=== PATIENT | male | born 1980 | race Two or more races ===

== ENCOUNTER 2023-04-15 18:20 | Inpatient (IN) | payer OTHER ==
[2023-04-15 19:05] VITALS: BMI 20.2
[2023-04-15] MEDS ORDERED: IBUPROFEN 600 MG TABLET (FP) PO PRN (20:59)
[2023-04-15] MEDS ORDERED: LOPERAMIDE HCL 2 MG CAPSULE PO PRN (20:59)
[2023-04-15] MEDS ORDERED: DICYCLOMINE HCL 10 MG CAPSULE PO PRN (20:59)
[2023-04-15] MEDS ORDERED: P-EPHED 60MG/TRIPROLIDI 2.5MG TABLET PO PRN (20:59)
[2023-04-15] MEDS ORDERED: POLYETHYLENE GLYCOL (HEALTHYLAX) 3350 17 GM PACKET PO PRN (20:59)
[2023-04-15] MEDS ORDERED: guaiFENesin 600 MG TABLET.ER (FP) PO PRN (20:59)
[2023-04-15] MEDS ORDERED: ONDANSETRON *ODT* 4 MG TABLET SL PRN (20:59)
[2023-04-15] MEDS ORDERED: IBUPROFEN 400 MG TABLET (FP) PO PRN (20:59)
[2023-04-15] MEDS ORDERED: MAG HYDROX/AL HYDROX/SIMETH 30 ML UNIT-DOSE CUP PO PRN (20:59)
[2023-04-15] MEDS ORDERED: MAGNESIUM HYDROX 2400MG/30ML ORAL SUSPENSION 30 ML CUP PO PRN (20:59)
[2023-04-15] MEDS ORDERED: ACETAMINOPHEN 325 MG TABLET (FP) PO PRN (20:59)
[2023-04-15] MEDS ORDERED: BISMUTH SUBSALICYLATE 524 MG/30 ML PO PRN (20:59)
[2023-04-15] MEDS ORDERED: BENZOCAINE/MENTHOL (CHLORASEPTIC ) LOZENGE MM PRN (20:59)
[2023-04-15] MEDS ORDERED: BENZONATATE 200 MG CAPSULE PO PRN (20:59)
[2023-04-15] MEDS ORDERED: NICOTINE POLACRILEX 2 MG GUM BUC PRN (20:59)
[2023-04-15] MEDS: THIAMINE HCL 100 MG TABLET (FP) PO SCH (22:43)
[2023-04-15] MEDS: MELATONIN 5 MG TABLETS PO SCH (22:43)
[2023-04-16] MEDS: PRENATAL VITAMINS W/ FOLIC ACID TABLET (FP) PO SCH (10:43)
[2023-04-16 11:53] LABS: HEMATOCRIT 44.2 % (35.4-49); HEMOGLOBIN 14.8 GM/dL (11.7-16.9); MCH 33.6 pg (25.7-33.7); MCHC 33.5 g/dl (32.0-35.9); MEAN CELL VOLUME 100.3 fl (80-96); MEAN PLT VOLUME 9.2 fl (7.5-11.1); PLATELET COUNT 163 10^3/uL (134-434); RBC 4.41 M/mm3 (4.00-5.60); RDW 12.6 % (11.9-15.9); WHITE BLOOD COUNT 7.1 K/mm3 (4.0-10.0)
[2023-04-16 11:58] LABS: CALCIUM 8.3 mg/dL (8.5-10.1)
[2023-04-16 11:59] LABS: BLOOD UREA NITROGEN 10.6 mg/dL (7-18)
[2023-04-16 12:02] LABS: CREATININE 0.9 mg/dL (0.55-1.3)
[2023-04-16 12:04] LABS: BILIRUBIN,TOTAL 0.9 mg/dL (0.2-1); TOT PROT 5.5 g/dl (6.4-8.2)
[2023-04-16] MEDS: MELATONIN 5 MG TABLETS PO SCH (22:13)
[2023-04-16] MEDS: METHOCARBAMOL 500 MG TABLET PO PRN (22:13)
[2023-04-16] MEDS: THIAMINE HCL 100 MG TABLET (FP) PO SCH (22:13)
[2023-04-16] MEDS: hydrOXYzine PAMOATE 25 MG CAPSULE (FP) PO PRN (22:13)
[2023-04-17] MEDS: PRENATAL VITAMINS W/ FOLIC ACID TABLET (FP) PO SCH (10:16)
[2023-04-17] MEDS: MELATONIN 5 MG TABLETS PO SCH (22:25)
[2023-04-17] MEDS: THIAMINE HCL 100 MG TABLET (FP) PO SCH (22:25)
[2023-04-17] MEDS: hydrOXYzine PAMOATE 25 MG CAPSULE (FP) PO PRN (22:26)
[2023-04-17] MEDS: METHOCARBAMOL 500 MG TABLET PO PRN (22:26)
[2023-04-18] MEDS: PRENATAL VITAMINS W/ FOLIC ACID TABLET (FP) PO SCH (09:57)
[2023-04-18 12:55] VITALS: BP 116/75; PULSE 82; RESP 20; TEMP 97.9
== END 2023-04-18 14:44 | disposition other institution (70) | DRG 775 ==
LOC: YASAS 18:20 → UNDOADMIN 21:42 → Y3N 21:42 → UNDODISIN 04-18 14:44
PROVIDERS: ADMIT Allergy & Immunology; ATTEND Surgery
PROC: HZ2ZZZZ Detoxification Services for Substance Abuse Treatment (ICD-10-PCS; principal; 2023-04-15)
DX: F10.20 Alcohol dependence, uncomplicated (principal); F16.20 Hallucinogen dependence, uncomplicated; F17.210 Nicotine dependence, cigarettes, uncomplicated; F19.24 Other psychoactive substance dependence with psychoactive substance-induced mood disorder; Z28.310 Unvaccinated for COVID-19; Z28.9 Immunization not carried out for unspecified reason
CPT/HCPCS: 36415; 80053; 85027; 86780; 87635; 87811

== ENCOUNTER 2023-04-18 14:46 | Inpatient (IN) | payer OTHER ==
[2023-04-18] MEDS ORDERED: COLLOIDAL OATMEAL 1 BAR EACH TP PRN (15:25)
[2023-04-18] MEDS ORDERED: IBUPROFEN 400 MG TABLET (FP) PO PRN (15:25)
[2023-04-18] MEDS ORDERED: ACETAMINOPHEN 325 MG TABLET (FP) PO PRN (15:25)
[2023-04-18] MEDS ORDERED: MAGNESIUM HYDROX 2400MG/30ML ORAL SUSPENSION 30 ML CUP PO PRN (15:25)
[2023-04-18] MEDS ORDERED: NALOXONE HCL 0.4 MG/ML VIAL IVPUSH PRN (15:25)
[2023-04-18] MEDS ORDERED: BACLOFEN 10 MG TABLET (FP) PO PRN (15:25)
[2023-04-18] MEDS ORDERED: IBUPROFEN 600 MG TABLET (FP) PO PRN (15:25)
[2023-04-18] MEDS ORDERED: hydrOXYzine PAMOATE 25 MG CAPSULE (FP) PO PRN (15:25)
[2023-04-18] MEDS ORDERED: LOPERAMIDE HCL 2 MG CAPSULE PO PRN (15:25)
[2023-04-18] MEDS ORDERED: guaiFENesin 600 MG TABLET.ER (FP) PO PRN (15:25)
[2023-04-18] MEDS ORDERED: NICOTINE 14 MG/24 HOURS TOPICAL PATCH TD PRN (15:25)
[2023-04-18] MEDS ORDERED: BENZONATATE 200 MG CAPSULE PO PRN (15:25)
[2023-04-18] MEDS ORDERED: NALOXONE HCL (KLOXXADO) 8 MG SPRAY NS PRN (15:25)
[2023-04-18] MEDS ORDERED: MAG HYDROX/AL HYDROX/SIMETH 30 ML UNIT-DOSE CUP PO PRN (15:25)
[2023-04-18] MEDS ORDERED: BENZOCAINE/MENTHOL (CHLORASEPTIC ) LOZENGE MM PRN (15:25)
[2023-04-18] MEDS ORDERED: NICOTINE POLACRILEX 4 MG GUM BUC PRN (15:25)
[2023-04-18] MEDS ORDERED: POLYETHYLENE GLYCOL (HEALTHYLAX) 3350 17 GM PACKET PO PRN (15:25)
[2023-04-18 15:34] VITALS: RESP 18
[2023-04-18] MEDS ORDERED: TUBERCULIN PPD 5 TU/0.1ML VIAL ID ONE (16:48)
[2023-04-18] MEDS ORDERED: MELATONIN 5 MG TABLETS PO SCH (22:00)
[2023-04-18] MEDS ORDERED: THIAMINE HCL 100 MG TABLET (FP) PO SCH (22:00)
[2023-04-19 07:33] VITALS: BP 98/61; PULSE 63; TEMP 97.5
[2023-04-19] MEDS ORDERED: PRENATAL VITAMINS W/ FOLIC ACID TABLET (FP) PO SCH (10:00)
[2023-04-19 11:21] LABS: HIV INTERPRETATION NEGATIVE (NEGATIVE)
== END 2023-04-19 10:09 | disposition left against medical advice (07) | DRG 770 ==
LOC: YASAS 14:46 → Y3W 14:47
PROVIDERS: ADMIT Allergy & Immunology; ATTEND Psychiatry & Neurology Pain Medicine
PROC: HZ42ZZZ Group Counseling for Substance Abuse Treatment, Cognitive-Behavioral (ICD-10-PCS; principal; 2023-04-18)
DX: F10.20 Alcohol dependence, uncomplicated (principal); F16.20 Hallucinogen dependence, uncomplicated; F17.210 Nicotine dependence, cigarettes, uncomplicated; F19.24 Other psychoactive substance dependence with psychoactive substance-induced mood disorder; F91.8 Other conduct disorders; Z86.59 Personal history of other mental and behavioral disorders; Z91.199 Patient's noncompliance with other medical treatment and regimen due to unspecified reason
CPT/HCPCS: 36415; 82140; 86803; 87389